=== PATIENT | male | born 1960 | race Two or more races ===

== ENCOUNTER 2025-01-16 07:24 | Inpatient (IN) | payer OTHER ==
[~2025-01-16] VITALS: Ht 193 cm; Wt 114.3 kg
[~2025-01-16 07:24] MED LIST: ALBUAER3 IN; ATOR80TA PO; GABA400C PO; GLIP10TA9 PO; LISI20TA56 PO; MELO7.5T7 PO; METF-372 PO; OMEP20TA PO; OXY20CRT PO; TAMS-35 PO
[2025-01-16] MEDS ORDERED: KETOROLAC TROMETH 30 MG/ML 1ML VIAL ONE (08:22)
[2025-01-16] MEDS ORDERED: MORPHINE SULF PF 5 MG/10 ML VIAL ONE (08:22)
[2025-01-16] MEDS ORDERED: MIDAZOLAM HCL 2MG/2ML 2ml VIAL (1mg/ml) ONE (08:48)
[2025-01-16] MEDS ORDERED: fentaNYL CITRATE 100 MCG/2 ML VL ONE (08:48)
[2025-01-16] MEDS ORDERED: KETAMINE 50mg/ML 1ml syringe ONE (08:48)
[2025-01-16] MEDS ORDERED: LIDOCAINE HCL 2% TOP JELLY 5ML TOP ONE (08:49)
[2025-01-16] MEDS ORDERED: HYDROmorphone HCL 2 MG/ML VL/or syr ONE (08:49)
[2025-01-16] MEDS ORDERED: LIDOCAINE 1% INJ PF 5ML AMP ONE (08:49)
[2025-01-16] MEDS ORDERED: PROPOFOL 10 MG/ML 20 ML IV ONE (08:49)
[2025-01-16] MEDS ORDERED: fentaNYL CITRATE 5 ML ONE (08:49)
[2025-01-16] MEDS ORDERED: SODIUM CHLORIDE LOCK 50 ML ONE (08:49)
[2025-01-16] MEDS ORDERED: MORPHINE SULFATE INJ 2 MG/ml SYRG IV PRN ×2 (10:15→12:45)
[2025-01-16] MEDS ORDERED: ONDANSETRON HCL 4 MG/2 ML VIAL IV PRN (10:15)
[2025-01-16] MEDS ORDERED: OXYCODONE W/ ACETAMINOPHEN 5/325MG TABLET PO PRN (10:15)
[2025-01-16] MEDS ORDERED: NITROGLYCERIN 0.4 MG SL TAB SL PRN (10:15)
[2025-01-16] MEDS: VANCOMYCIN HCL 1000 MG VL ONE ×2 (10:23→12:41)
--- NOTE | 2025-01-16 11:17 | DVHOP2 ---
Operative Report - 2 Report Details Date: 01/16/25 Preop Diagnosis: Left Hip Osteoarthritis Postop Diagnosis: Same Surgeon: Miles Taylor MD Rooter Operator: Quang Anesthesiologist: Jules Anesthesia: Regional Implant: Pina Biomet: Z1 size 4, 58mm G7 Dual mobility, +3.5mm head Consent: The patient was informed of the risks and benefits of the procedure. These include but are not limited to complications of anesthesia, postoperative infection, incomplete relief of symptoms, recurrence of symptoms, damage to blood vessels, nerves and tendons, deep venous thrombosis, pulmonary embolism and possible need for repeat surgery in the future. Estimated Blood Loss: 250ml Name of Procedure Performed Left Total hip arthroplasty Procedure Details Procedure Details: Preoperative medical and anesthesia clearance was obtained. The patient was seen in the preoperative area, and the operative site was confirmed and marked by myself, with verification by the orthopedic team and the patient. All questions were addressed, documentation was reviewed, and the patient was transported to the operating room in stable condition. Upon arrival in the OR, anesthesia was administered. The patient received prophylactic antibiotics and tranexamic acid. A surgical time-out was performed, confirming the correct operative site. The patient was positioned laterally with appropriate padding to the axilla, lower extremities, and pelvis. The nonoperative leg was fitted with a compression stocking and sequential compression device. The operative site was prepped and draped in the standard sterile fashion. The surgical team utilized body exhaust suits. A posterior incision was made just posterior to the greater trochanter of the right hip. Dissection was carried through the subcutaneous tissue using electrocautery. The fascia overlying the gluteus олег was split in line with its fibers, and a portion of the distal iliotibial band was incised. A Charnley self-retaining retractor was placed, with care taken to protect the sciatic nerve. The hip was internally rotated, and the short external rotators were detached from the greater trochanter. Capsulotomy was performed, and the hip was dislocated posteriorly. Anna retractors were used to protect soft tissues, and femoral neck osteotomy was performed according to preoperative templating. The femoral head was removed and measured. Attention was then directed to the acetabulum. Acetabular retractors were placed for exposure. The labrum and pulvinar were excised. Sequential reaming was performed to the appropriate size (58mm). The definitive acetabular component (size) was implanted at approximately 45 degrees of abduction and 20 degrees of anteversion, with fixation augmented by 3 screw(s). Given his spine history and to limit the risk of disloction, a dual mobility liner was inserted, confirmed to be fully seated, and tested for stability. Retractors were removed, and attention was turned to the femur. A femoral elevator was used for exposure. The piriformis was excised. A Charnley awl, box osteotome, and lateralizing reamer were used to access the proximal femur. Sequential reaming and broaching were performed, and a trial broach (4 size) was selected. The calcar was planed. Multiple trial reductions were performed, and the hip was assessed through a range of motion for stability and impingement. The final femoral component was implanted. The trunnion was cleaned and dried, and the femoral head was impacted and stressed. The hip was reduced. The wound was irrigated with dilute betadine and pulsatile lavage. Local anesthetic cocktail was injected into the soft tissues. The capsule and short external rotators were repaired with #5 FiberWire. The wound was irrigated again, and the fascia was closed with #1 absorbable suture. Subcutaneous tissue was closed with 2-0 absorbable suture, and the skin was closed with marina. A sterile dressing was applied, and drapes were removed. An abduction pillow was placed, and the patient was transferred to the recovery room in stable condition. Instrument and sponge counts were correct. I was present for the entire procedure. Condition Good Disposition Home with Health Services MILES TAYLOR DO Jan 16, 2025 11:17
[2025-01-16 11:48] VITALS: PULSE 79; RESP 14; O2SAT 100
[2025-01-16 11:55] VITALS: PULSE 77; RESP 11; O2SAT 100
[2025-01-16] MEDS: ACCU-CHEK COMFORT CURVE STRIP VI ONE (11:55)
[2025-01-16] MEDS: HYDROmorphone HCL 2 MG/ML VL/or syr IV PRN ×2 (12:02→13:41)
[2025-01-16] MEDS: ACETAMINOPHEN IV 100 ML IV ONE (12:18)
[2025-01-16] MEDS: SUCCINYLCHOLINE CHLORIDE 20 MG/ML 10ML VIAL IV ONE (12:40)
[2025-01-16] MEDS: ROCURONIUM 10MG/ML 10ML VIAL IV ONE (12:40)
[2025-01-16] MEDS: TRANEXAMIC ACID 20 ML ONE (12:41)
[2025-01-16] MEDS: BUPIVACAINE 0.25% INJ 50ML VIAL ONE (12:41)
[2025-01-16] MEDS: CEFEPIME 1GM/50ML 50 ML IV ONE (12:42)
[2025-01-16] MEDS ORDERED: METOCLOPRAMIDE HCL 5MG/ml INJ 2ml VIAL IV PRN (12:45)
[2025-01-16] MEDS ORDERED: HYDROmorphone HCL 2 MG/ML VL/or syr IV PRN (12:45)
[2025-01-16] MEDS ORDERED: MORPHINE SULFATE 4 MG/ML SYR/VIAL IV PRN (12:45)
--- NOTE | 2025-01-16 13:08 | DVH ---
CLINICAL INDICATION: TOTAL HIP ARTHROPLASTY TECHNIQUE: 1 radiographic views of the pelvis and 2 views of the left hip were obtained. Comparison: XR HIP LEFT 2-3 VIEW on DOS: 10/31/24 FINDINGS/IMPRESSION: There is no evidence of acute fracture or dislocation. Status post left hip arthroplasty.
[2025-01-16] MEDS: LACTATED RINGER'S 1,000 ML IV SCH (13:13)
[2025-01-16] MEDS: ACETAMINOPHEN IV 1000 MG/100ML (10MG/ML) IV ONE (13:14)
[2025-01-16] MEDS: KETOROLAC TROMETH 30 MG/ML 1ML VIAL IV ONE (13:15)
[2025-01-16] MEDS: CLINDAMYCIN 600MG IV 50 ML IV SCH (14:03)
[2025-01-16] MEDS: KETOROLAC TROMETH 30 MG/ML 1ML VIAL IV SCH (14:03)
--- NOTE | 2025-01-16 16:59 | DVHINCON2 ---
Date of service: Jan 16, 2025 Reason for Consultation Post hip surgery medical management History of Present Illness This is a 64-year-old gentleman with a left hip osteoarthritis admitted to the hospital and underwent a left total hip arthroplasty. Postop hospitalist consultation being obtained for medical management. Currently pain is controlled. No other complaints. Past Medical History Osteoarthritis, diabetes mellitus type 2, hypertension, hyperlipidemia, BPH Past Surgical History None significant Allergies: Coded Allergies: Penicillins (Unverified Allergy, Intermediate, rash, 01/13/25) Home Meds Reported Medications Omeprazole (Gnp Omeprazole) 20 Mg Tab, 20 MG PO, TAB 01/13/25 Oxycodone Hcl (OxyCONTIN ER Tablet) 20 Mg Tb, 20 MG PO, TAB 01/13/25 Meloxicam (Meloxicam) 7.5 Mg Tab, 7.5 MG PO PRN, TAB 01/13/25 Lisinopril (Lisinopril) 20 Mg Tab, 20 MG PO QPM, TAB 01/13/25 Glipizide (Glipizide) 10 Mg Tab, 10 MG PO BID, TAB 01/13/25 Tamsulosin Hcl (Flomax) 0.4 Mg Cap, 0.4 MG PO DAILY, CAP 01/13/25 Atorvastatin Calcium (Lipitor) 80 Mg Tab, 80 MG PO QPM, TAB 01/13/25 Albuterol Sulfate (VENTOLIN MDI) 90 Mcg Ih, 90 MCG IN PRN, INH 01/13/25 Gabapentin (Neurontin) 400 Mg Cap, 800 MG PO TID, CAP 01/13/25 Metformin Hydrochloride (Metformin Hcl) 1,000 Mg Tab, 1 TAB PO BID, #180 TAB 3 Refills 01/13/25 Current Medications Current Medications Medications (Trade) Dose Ordered Sig/Meghan Route PRN Reason Start Time Stop Time Status Last Admin Lactated Ringer's 1,000 ml @ 100 mls/hr Q10H IV 01/16/25 10:15 01/16/25 13:13 Clindamycin Phosphate 50 ml @ 50 mls/hr Q6HR IV 01/16/25 12:00 01/17/25 00:59 01/16/25 14:03 Oxycodone/ Acetaminophen (Percocet 5/ 325MG Tablet) 1 tab Q4HP PRN PO MODERATE PAIN 01/16/25 10:15 Hold Hydromorphone HCl (Dilaudid Injection) 1 mg Q2HP PRN IV SEVERE PAIN (7-10 PAIN SCALE) 01/16/25 10:15 01/16/25 12:02 Ondansetron HCl (Zofran) 4 mg Q6HP PRN IV NAUSEA / VOMITING 01/16/25 10:15 Docusate Sodium (Colace Capsule) 100 mg Q12HR PO 01/16/25 22:00 Enoxaparin Sodium (Lovenox) 30 mg Q12HR SC 01/16/25 22:00 01/16/25 15:43 DC Acetaminophen/ Hydrocodone Bitart (Elsa 10/325MG Tab) 1 tab Q4HP PRN PO MODERATE PAIN (4-6 PAIN SCALE) 01/16/25 10:15 Ketorolac Tromethamine (Toradol Injection) 15 mg Q6HR IV 01/16/25 12:00 01/21/25 11:59 Nitroglycerin (Ntrostat Sublingual) 0.4 mg Q5MINP PRN SL FOR CHEST PAIN 01/16/25 10:15 Morphine Sulfate 2 mg Q30M PRN IV FOR CHEST PAIN 01/16/25 10:15 Metoclopramide HCl (Reglan Injection) 10 mg ONCE PRN IV NAUSEA / VOMITING 01/16/25 12:45 01/16/25 12:59 DC Hydromorphone HCl (Dilaudid Injection) 0.5 mg Q10M PRN IV SEVERE PAIN (7-10 PAIN SCALE) 01/16/25 12:45 01/16/25 13:26 DC 01/16/25 13:41 Morphine Sulfate 2 mg Q4H PRN IV BREAKTHRU PAIN SCALE 7-10 01/16/25 12:45 01/16/25 16:46 DC Hydromorphone HCl (Dilaudid Injection) 0.25 mg Q10M PRN IV MODERATE PAIN (4-6 PAIN SCALE) 01/16/25 12:45 01/16/25 13:16 DC Morphine Sulfate 1 mg Q30M PRN IV SEVERE PAIN (7-10 PAIN SCALE) 01/16/25 12:45 01/16/25 14:46 DC Enoxaparin Sodium (Lovenox) 30 mg DAILY SC 01/17/25 10:00 Albuterol (Ventolin Hfa) 90 mcg PRN IN 01/16/25 17:00 UNV Gabapentin (Neurontin Capsule) 800 mg TID PO 01/16/25 22:00 UNV Lisinopril (Zestril Tablet) 20 mg QPM PO 01/16/25 18:00 UNV Tamsulosin HCl (Flomax) 0.4 mg DAILY PO 01/17/25 10:00 UNV Atorvastatin Calcium (Lipitor) 20 mg HS PO 01/16/25 22:00 UNV Glipizide (Glucotrol Tablet) 5 mg IBID PO 01/16/25 18:00 UNV Review of Systems No complaints of chest pain shortness for breath. No headache dizziness or ligh theadedness. Other review of systems reviewed normal. Vital Signs Vital Signs Date Time Temp Pulse Resp B/P (MAP) Pulse Ox O2 Delivery O2 Flow Rate FiO2 01/16/25 14:10 97.5 82 12 149/74 (99) 95 97.5 01/16/25 11:55 Room Air 0 100 Physical Exam Alert awake oriented x3. Comfortable in bed without distress. HEENT neck supple no JVD. Heart regular rate and rhythm S1-S2. Lungs fair air movement no rales wheezes. Abdomen soft nontender positive bowel sounds. Extremities no edema positive pulses. Labs/Diagnostic Data Labs Test 01/16/25 11:52 Range/Units POC Glucose 167 H 70-106 mg/dl Assessment Osteoarthritis of the hip Status post left hip Replacement surgery hypertension Diabetes mellitus type 2 Hyperlipidemia We will DC his IV fluids once he is able to take adequate oral intake. Sliding scale insulin. Resume his home medications including diabetic blood pressure and cholesterol medicines. Physical therapy evaluation. Social Service consultation. Continue rest of supportive care and treatment. Further clinical management per clinical course. Discussed with the patient regarding care plan. Plan discussed with: Patient, Other SURI PLATA MD Jan 16, 2025 16:59
[2025-01-16 17:00] VITALS: BP 146/80; PULSE 73; RESP 16; TEMP 98.4; O2SAT 97
[2025-01-16] MEDS ORDERED: ALBUTEROL SULF HFA 90MCG INH 200DOSE IN PRN (17:00)
[2025-01-16] MEDS: ACCU-CHEK COMFORT CURVE STRIP VI SCH (17:00)
[2025-01-16] MEDS ORDERED: DEXTROSE (50%) 50ML SYRG IV PRN (17:00)
[2025-01-16] MEDS: InsuLIN REG 1unit/0.01ml Soln (100units/ml) SC SCH (18:19)
[2025-01-16 19:53] VITALS: O2SAT 95
[2025-01-16 20:00] VITALS: PULSE 74
[2025-01-16 20:38] VITALS: BP 136/68; PULSE 72; RESP 16; TEMP 97.7; O2SAT 96
[2025-01-16] MEDS: glipiZIDE 5 MG TAB PO SCH (21:30)
[2025-01-16] MEDS: DOCUSATE SOD 100 MG CAP PO SCH (21:30)
[2025-01-16] MEDS: ATORVASTATIN 20 MG TAB PO SCH (21:31)
[2025-01-16] MEDS: GABAPENTIN 400 MG CAP PO SCH (21:31)
[2025-01-16] MEDS: HYDROcodone-ACET 10/325MG TAB PO PRN (21:37)
[2025-01-16] MEDS: LISINOPRIL 20 MG TAB PO SCH (21:40)
[2025-01-16] MEDS ORDERED: ENOXAPARIN SOD 30 MG/0.3 ML SYRINGE SC SCH (22:00)
[2025-01-17] VITALS (11 sets, daily range): BP systolic 119–144; BP diastolic 58–70; PULSE 66–85; RESP 15–18; TEMP 97.8–99.1; O2SAT 93–98
[2025-01-17 07:05] LABS: Hematocrit 35.0 % (41.0-53.0); Hemoglobin 12.0 g/dL (13.5-17.5); Mean Corpuscular Hemoglobin 30.2 pg (28.0-32.0); Mean Corpuscular Volume 88.5 fL (80.0-100.0); Nucleated Red Blood Cells % 0.0 %
[2025-01-17 07:22] LABS: Alanine Aminotransferase 19 U/L (7-40); Alkaline Phosphatase 91 U/L (46-116); Anion Gap 8 (5-15); BUN/Creatinine Ratio 17.9 (10.0-20.0); Blood Urea Nitrogen 19 mg/dL (9-23); Calcium 8.8 mg/dL (8.7-10.4); Carbon Dioxide 27 mmol/L (20-31); Chloride 103 mmol/L (98-107); Potassium 4.7 mmol/L (3.5-5.1); Sodium 138 mmol/L (136-145); Total Protein 6.1 g/dL (5.7-8.2)
[2025-01-17 07:23] LABS: Albumin 3.8 g/dL (3.2-4.8)
[2025-01-17 07:24] LABS: Bilirubin, Total 0.5 mg/dL (0.2-1.0)
[2025-01-17 07:26] LABS: Glucose 139 mg/dL (74-106)
[2025-01-17] MEDS ORDERED: ALBUTEROL SULF 2.5 MG/0.5ML(0.5%) NEB SOLN NEB PRN (09:30)
[2025-01-17] MEDS: ENOXAPARIN SOD 30 MG/0.3 ML SYRINGE SC SCH (09:40)
[2025-01-17] MEDS: TAMSULOSIN HYDROCHLORIDE 0.4 MG CAP PO SCH (09:40)
[2025-01-17] MEDS ORDERED: HYDROmorphone HCL 2 MG/ML VL/or syr IV PRN (11:30)
[2025-01-18 01:00] VITALS: BP 165/83; PULSE 86; RESP 16; TEMP 97.7; O2SAT 93
[2025-01-18 02:00] VITALS: BP 149/68; PULSE 78
[2025-01-18 05:00] VITALS: BP 153/75; PULSE 76; RESP 17; TEMP 97.7; O2SAT 94
[2025-01-18 08:00] VITALS: PULSE 77; PULSE 79; RESP 18; O2SAT 95
--- NOTE | 2025-01-18 08:05 | DVHDS2 ---
Discharge Summary Date of Admission Jan 16, 2025 at 10:09 Date of Discharge: Jan 18, 2025 Labs/Diagnostic Data: Laboratory Results Test 01/18/25 06:01 01/17/25 05:17 POC Glucose 204 mg/dl (70-106) White Blood Count 5.8 10^3/uL (4.4-10.8) Red Blood Count 3.96 10^6/uL (4.5-5.90) Hemoglobin 12.0 g/dL (13.5-17.5) Hematocrit 35.0 % (41.0-53.0) Mean Corpuscular Volume 88.5 fL (80.0-100.0) Mean Corpuscular Hemoglobin 30.2 pg (28.0-32.0) Mean Corpuscular Hemoglobin Concent 34.2 g/dL (32.0-36.0) Red Cell Distribution Width 13.9 % (11.8-14.3) Platelet Count 211 10^3/uL (140-450) Mean Platelet Volume 9.3 fL (6.9-10.8) Neutrophils (%) (Auto) 76.9 % (37.0-80.0) Lymphocytes (%) (Auto) 12.2 % (10.0-50.0) Monocytes (%) (Auto) 9.2 % (0.0-12.0) Eosinophils (%) (Auto) 1.2 % (0.0-7.0) Basophils (%) (Auto) 0.5 % (0.0-2.0) Neutrophils # (Auto) 4.5 10 ^3/uL (1.6-8.6) Lymphocytes # (Auto) 0.7 10 ^3/uL (0.4-5.4) Monocytes # (Auto) 0.5 10 ^3/uL (0-1.3) Eosinophils # (Auto) 0.1 10 ^3/uL (0-0.8) Basophils # (Auto) 0 10 ^3/uL (0-0.2) Nucleated Red Blood Cells 0.0 % Sodium Level 138 mmol/L (136-145) Potassium Level 4.7 mmol/L (3.5-5.1) Chloride Level 103 mmol/L (98-107) Carbon Dioxide Level 27 mmol/L (20-31) Anion Gap 8 (5-15) Blood Urea Nitrogen 19 mg/dL (9-23) Creatinine 1.06 mg/dL (0.700-1.30) Glomerular Filtration Rate Calc 78 mL/min (>90) BUN/Creatinine Ratio 17.9 (10.0-20.0) Serum Glucose 139 mg/dL (74-106) Calcium Level 8.8 mg/dL (8.7-10.4) Total Bilirubin 0.5 mg/dL (0.2-1.0) Aspartate Amino Transferase (AST) 36 U/L (13-40) Alanine Aminotransferase (ALT) 19 U/L (7-40) Alkaline Phosphatase 91 U/L (46-116) Total Protein 6.1 g/dL (5.7-8.2) Albumin 3.8 g/dL (3.2-4.8) Other Laboratory Tests 01/17/25 05:17 Brief Hx & Hospital Course: s/p left hip total arthroplasty Condition at Discharge: Good Final Diagnosis/Problems List Same Discharge Disposition: Home with Health Services Discharge Instruct/Medications Diet: Regular Diet comment: may advance diet as tolerated Activity: See Comment Activity comment: posterior hip precautions Follow Up/Referral: follow up in 2 weeks as scheduled on 01/31/2025 at 10:00 Medications: prescriptions for percocet, colace and aspirin sent to patients preferred [facility] on [address] [place] Scheduled Albuterol Sulfate (Ventolin Mdi), 90 MCG IN PRN, (Reported) Atorvastatin Calcium (Lipitor), 80 MG PO QPM, (Reported) Gabapentin (Neurontin), 800 MG PO TID, (Reported) Glipizide (Glipizide), 10 MG PO BID, (Reported) Lisinopril (Lisinopril), 20 MG PO QPM, (Reported) Meloxicam (Meloxicam), 7.5 MG PO PRN, (Reported) Metformin Hydrochloride (Metformin Hcl), 1 TAB PO BID, (Reported) Tamsulosin Hcl (Flomax), 0.4 MG PO DAILY, (Reported) Miscellaneous Medications Omeprazole (Gnp Omeprazole), 20 MG PO, (Reported) Oxycodone Hcl (OxyCONTIN ER Tablet), 20 MG PO, (Reported) Discharge Statement: "Patient was advised to return to the ER or call 911 if any headaches, dizziness, shortness of breath, chest pain, abdominal pain, bleeding, fevers, or worsening of medical condition. Patient was counseled about treatment plan, medications, possible side effects, patientverbalized understanding. All questions were answered to the best of my ability. This discharge took greater then 30 minutes in planning, reviewing documentation, counseling the patient, and discussing with other team members." ASSESSMENT ASSESSMENT Assessment Same ALBIN AGUILLON NP Jan 18, 2025 08:04
[2025-01-18 09:00] VITALS: BP 146/78; PULSE 77; RESP 17; TEMP 98.1; O2SAT 95
[2025-01-18 16:30] VITALS: BP 122/71; PULSE 77; RESP 18; TEMP 98; O2SAT 97
== END 2025-01-18 17:00 | disposition home health service (06) | DRG 470 ==
LOC: SUR 07:24 → OVERFLOW 10:09 → TELE-CENTR 14:25
PROVIDERS: ADMIT Nurse Practitioner; ATTEND Nurse Practitioner
PROC: 0SRB06Z Replacement of Left Hip Joint with Oxidized Zirconium on Polyethylene Synthetic Substitute, Open Approach (ICD-10-PCS; principal; 2025-01-16 09:22)
DX: M16.12 Unilateral primary osteoarthritis, left hip (principal); I10 Essential (primary) hypertension; E11.9 Type 2 diabetes mellitus without complications; E78.5 Hyperlipidemia, unspecified; N40.0 Benign prostatic hyperplasia without lower urinary tract symptoms; Z88.0 Allergy status to penicillin; Z79.84 Long term (current) use of oral hypoglycemic drugs
CPT/HCPCS: 36415; 73502; 80053; 82962; 85025; 86850; 86900; 86901; 97110; 97116; 97163; 97530; A4565; G0378; J0131; J0330; J1815; J1885; J2250; J2704; J3490